=== PATIENT | male | born 1960 | race Caucasian/White ===

== ENCOUNTER 2019-11-19 07:55 | Inpatient (IN) | payer OTHER ==
--- NOTE | 2019-11-19 08:50 | ED ---
General Adult HPI - General Chief complaint: Fever Stated complaint: Weakness/Poss Covid Time Seen by Provider: 11/19/19 08:00 Source: patient, RN notes reviewed, old records reviewed Mode of arrival: EMS - History of Present Illness Initial comments: This is a 59-year-old male who presents to the emergency department and is a very poor historian but he is alert and oriented 3. Patient states he was in the hospital at [facility] about 2 months ago he thinks he was in the hospital for 6 weeks but he is not exactly sure why he was in the hospital or what symptoms brought him to the hospital or what his final diagnosis was other then he was diagnosed with non-Hodgkin's lymphoma. Patient states nobody will tell him the truth his brothers or girlfriend for some reason or keeping the information from him so he will not tell me why. Patient states he's here today because he started having some achiness just a low-grade fever and he decided come to the emergency department to be evaluated. Patient states he is supposed to be treated locally for his non-Hodgkin's lymphoma and has an appointment tomorrow. Patient states he's had no shortness of breath or difficulty breathing easily no conjunctival symptoms. Patient denies any chest pain or palpitations. Patient denies abdominal pain patient denies any nausea vomiting diarrhea per patient denies any rashes. Patient again does not remember virtually anything from his 6 week hospital stay at home on [place]. - Related Data Home Medications Medication Instructions Recorded Confirmed Allopurinol [Zyloprim] 300 mg PO DAILY 11/19/19 11/19/19 Citalopram Hydrobromide [CeleXA] 20 mg PO DAILY 11/19/19 11/19/19 Dexamethasone 4 mg PO DAILY 11/19/19 11/19/19 Docusate Sodium [Dok] 100 mg PO BID 11/19/19 11/19/19 Lacosamide [Vimpat] 100 mg PO BID 11/19/19 11/19/19 QUEtiapine [SEROquel] 50 mg PO HS 11/19/19 11/19/19 Allergies Allergy/AdvReac Type Severity Reaction Status Date / Time No Known Allergies Allergy Verified 11/19/19 12:33 Review of Systems ROS Statement: Those systems with pertinent positive or pertinent negative responses have been documented in the HPI. ROS Other: All systems not noted in ROS Statement are negative. Past Medical History Past Medical History: Cancer, Diabetes Mellitus Additional Past Medical History / Comment(s): BRAIN CANCER History of Any Multi-Drug Resistant Organisms: None Reported Additional Past Surgical History / Comment(s): PORT Past Psychological History: No Psychological Hx Reported Smoking Status: Former smoker Past Alcohol Use History: Occasional Past Drug Use History: None Reported General Exam - General Exam Comments Initial Comments: GENERAL: Patient is well-developed and well-nourished. Patient is nontoxic and well- hydrated and is in no apparent distress. ENT: Neck is soft and supple. No significant lymphadenopathy is noted. Oropharynx is clear. Moist mucous membranes. Neck has full range of motion without eliciting any pain. EYES: The sclera were anicteric and conjunctiva were pink and moist. Extraocular movements were intact and pupils were equal round and reactive to light. Eyelids were unremarkable. PULMONARY: Patient had some minimal crackles in the left base CARDIOVASCULAR: There is a regular rate and rhythm without any murmurs gallops or rubs. ABDOMEN: Soft and nontender with normal bowel sounds. SKIN: Skin is clear with no lesions or rashes and otherwise unremarkable. NEUROLOGIC: Patient is alert and oriented x3. Cranial nerves II through XII are grossly intact. Motor and sensory are also intact. Normal speech, volume and content. Symmetrical smile. MUSCULOSKELETAL: Normal extremities with adequate strength and full range of motion. LYMPHATICS: No significant lymphadenopathy is noted PSYCHIATRIC: Normal psychiatric evaluation. Limitations: no limitations Course Vital Signs 11/19/19 11/19/19 11/19/19 07:57 08:40 10:08 Temperature 100.2 F H 99.2 F Pulse Rate 74 72 65 Respiratory 18 18 18 Rate Blood Pressure 141/80 151/80 120/63 O2 Sat by Pulse 97 98 97 Oximetry 11/19/19 11/19/19 11:00 13:00 Temperature Pulse Rate 70 80 Respiratory 18 16 Rate Blood Pressure 123/61 133/71 O2 Sat by Pulse 95 96 Oximetry Medical Decision Making - Medical Decision Making EKG shows normal sinus rhythm at 74 bpm OK interval 162 QRS is 90 QT interval 38 QTC is 4:30. Patient's EKG shows no ST segment elevation or depression. Patient was given magnesium emergency department. Patient was also given fluids. I spoke with Dr. Gonzalez agrees to admit the patient I wrote admitting orders. - Lab Data Result diagrams: 11/19/19 08:25 11/19/19 08:25 Lab Results 11/19/19 11/19/19 11/19/19 Range/Units 08:18 08:25 08:25 WBC 6.5 (3.8-10.6) k/uL RBC 4.20 L (4.30-5.90) m/uL Hgb 13.3 (13.0-17.5) gm/dL Hct 39.7 (39.0-53.0) % MCV 94.4 (80.0-100.0) fL MCH 31.6 (25.0-35.0) pg MCHC 33.5 (31.0-37.0) g/dL RDW 13.5 (11.5-15.5) % Plt Count 344 (150-450) k/uL Neutrophils % (Manual) 42 % Band Neutrophils % 3 % Lymphocytes % (Manual) 37 % Monocytes % (Manual) 12 % Eosinophils % (Manual) 1 % Metamyelocytes % 4 % Myelocytes % 3 % Neutrophils # (Manual) 2.90 (1.3-7.7) k/uL Lymphocytes # (Manual) 2.41 (1.0-4.8) k/uL Monocytes # (Manual) 0.78 (0-1.0) k/uL Eosinophils # (Manual) 0.07 (0-0.7) k/uL Metamyelocytes # (Man) 0.26 H (0) k/uL Myelocytes # (Manual) 0.20 H (0) k/uL Nucleated RBCs 1 H (0-0) /100 WBC Manual Slide Review Performed PT 9.3 (9.0-12.0) sec INR 0.9 (<1.2) APTT 20.9 L (22.0-30.0) sec D-Dimer 1.46 H (<0.60) mg/L FEU Sodium (137-145) mmol/L Potassium (3.5-5.1) mmol/L Chloride (98-107) mmol/L Carbon Dioxide (22-30) mmol/L Anion Gap mmol/L BUN (9-20) mg/dL Creatinine (0.66-1.25) mg/dL Est GFR (CKD-EPI)AfAm (>60 ml/min/1.73 sqM) Est GFR (CKD-EPI)NonAf (>60 ml/min/1.73 sqM) Glucose (74-99) mg/dL Lactic Ac Sepsis Rflx Plasma Lactic Acid Luis Daniel (0.7-2.0) mmol/L Calcium (8.4-10.2) mg/dL Magnesium (1.6-2.3) mg/dL Total Bilirubin (0.2-1.3) mg/dL AST (17-59) U/L ALT (4-49) U/L Alkaline Phosphatase (38-126) U/L Lactate Dehydrogenase (313-618) U/L C-Reactive Protein (<10.0) mg/L Total Protein (6.3-8.2) g/dL Albumin (3.5-5.0) g/dL Coronavirus (PCR) Not Detected (Not Detectd) Hepatitis A IgM Ab Influenza Type A RNA Not Detected (Not Detectd) Influenza Type B (PCR) Not Detected (Not Detectd) 11/19/19 11/19/19 11/19/19 Range/Units 08:25 08:25 09:07 WBC (3.8-10.6) k/uL RBC (4.30-5.90) m/uL Hgb (13.0-17.5) gm/dL Hct (39.0-53.0) % MCV (80.0-100.0) fL MCH (25.0-35.0) pg MCHC (31.0-37.0) g/dL RDW (11.5-15.5) % Plt Count (150-450) k/uL Neutrophils % (Manual) % Band Neutrophils % % Lymphocytes % (Manual) % Monocytes % (Manual) % Eosinophils % (Manual) % Metamyelocytes % % Myelocytes % % Neutrophils # (Manual) (1.3-7.7) k/uL Lymphocytes # (Manual) (1.0-4.8) k/uL Monocytes # (Manual) (0-1.0) k/uL Eosinophils # (Manual) (0-0.7) k/uL Metamyelocytes # (Man) (0) k/uL Myelocytes # (Manual) (0) k/uL Nucleated RBCs (0-0) /100 WBC Manual Slide Review PT (9.0-12.0) sec INR (<1.2) APTT (22.0-30.0) sec D-Dimer (<0.60) mg/L FEU Sodium 129 L (137-145) mmol/L Potassium 4.0 (3.5-5.1) mmol/L Chloride 97 L (98-107) mmol/L Carbon Dioxide 25 (22-30) mmol/L Anion Gap 7 mmol/L BUN 13 (9-20) mg/dL Creatinine 0.79 (0.66-1.25) mg/dL Est GFR (CKD-EPI)AfAm >90 (>60 ml/min/1.73 sqM) Est GFR (CKD-EPI)NonAf >90 (>60 ml/min/1.73 sqM) Glucose 315 H (74-99) mg/dL Lactic Ac Sepsis Rflx Y Plasma Lactic Acid Luis Daniel 3.1 H* (0.7-2.0) mmol/L Calcium 9.5 (8.4-10.2) mg/dL Magnesium 1.5 L (1.6-2.3) mg/dL Total Bilirubin 0.3 (0.2-1.3) mg/dL AST 505 H (17-59) U/L ALT 1056 H (4-49) U/L Alkaline Phosphatase 417 H (38-126) U/L Lactate Dehydrogenase 1554 H (313-618) U/L C-Reactive Protein 28.2 H (<10.0) mg/L Total Protein 6.2 L (6.3-8.2) g/dL Albumin 3.4 L (3.5-5.0) g/dL Coronavirus (PCR) (Not Detectd) Hepatitis A IgM Ab Influenza Type A RNA (Not Detectd) Influenza Type B (PCR) (Not Detectd) 11/19/19 11/19/19 Range/Units 12:12 13:07 WBC (3.8-10.6) k/uL RBC (4.30-5.90) m/uL Hgb (13.0-17.5) gm/dL Hct (39.0-53.0) % MCV (80.0-100.0) fL MCH (25.0-35.0) pg MCHC (31.0-37.0) g/dL RDW (11.5-15.5) % Plt Count (150-450) k/uL Neutrophils % (Manual) % Band Neutrophils % % Lymphocytes % (Manual) % Monocytes % (Manual) % Eosinophils % (Manual) % Metamyelocytes % % Myelocytes % % Neutrophils # (Manual) (1.3-7.7) k/uL Lymphocytes # (Manual) (1.0-4.8) k/uL Monocytes # (Manual) (0-1.0) k/uL Eosinophils # (Manual) (0-0.7) k/uL Metamyelocytes # (Man) (0) k/uL Myelocytes # (Manual) (0) k/uL Nucleated RBCs (0-0) /100 WBC Manual Slide Review PT (9.0-12.0) sec INR (<1.2) APTT (22.0-30.0) sec D-Dimer (<0.60) mg/L FEU Sodium (137-145) mmol/L Potassium (3.5-5.1) mmol/L Chloride (98-107) mmol/L Carbon Dioxide (22-30) mmol/L Anion Gap mmol/L BUN (9-20) mg/dL Creatinine (0.66-1.25) mg/dL Est GFR (CKD-EPI)AfAm (>60 ml/min/1.73 sqM) Est GFR (CKD-EPI)NonAf (>60 ml/min/1.73 sqM) Glucose (74-99) mg/dL Lactic Ac Sepsis Rflx Plasma Lactic Acid Luis Daniel 2.4 H* (0.7-2.0) mmol/L Calcium (8.4-10.2) mg/dL Magnesium (1.6-2.3) mg/dL Total Bilirubin (0.2-1.3) mg/dL AST (17-59) U/L ALT (4-49) U/L Alkaline Phosphatase (38-126) U/L Lactate Dehydrogenase (313-618) U/L C-Reactive Protein (<10.0) mg/L Total Protein (6.3-8.2) g/dL Albumin (3.5-5.0) g/dL Coronavirus (PCR) (Not Detectd) Hepatitis A IgM Ab NEGATIVE Influenza Type A RNA (Not Detectd) Influenza Type B (PCR) (Not Detectd) Disposition Clinical Impression: Fever of unknown origin, Hyponatremia, Hypomagnesemia, Lactic acidosis, Elevated liver enzymes Disposition: ADMITTED IP TO THIS HOSP Referrals: Nonstaff,Physician [Primary Care Provider] - 1-2 days Time of Disposition: 14:37
[2019-11-19 08:54] LABS: HCT 39.7 % (39.0-53.0); HGB 13.3 gm/dL (13.0-17.5); MCH 31.6 pg (25.0-35.0); MCHC 33.5 g/dL (31.0-37.0); MCV 94.4 fL (80.0-100.0); Mean Platelet Volume 7.5; Platelet Count 344 k/uL (150-450); RDW 13.5 % (11.5-15.5)
[2019-11-19 09:01] LABS: AST 505 U/L (17-59); African American GFR (CKD) >90 (>60 ml/min/1.73 sqM); Albumin 3.4 g/dL (3.5-5.0); Alkaline Phosphatase 417 U/L (38-126); Anion Gap 7 mmol/L; Blood Urea Nitrogen 13 mg/dL (9-20); C Reactive Protein 28.2 mg/L (<10.0); Calcium 9.5 mg/dL (8.4-10.2); Carbon Dioxide 25 mmol/L (22-30); Chloride 97 mmol/L (98-107); Glucose 315 mg/dL (74-99); LDH 1554 U/L (313-618); Magnesium 1.5 mg/dL (1.6-2.3); Non-African American GFR(CKD) >90 (>60 ml/min/1.73 sqM); Sodium 129 mmol/L (137-145); Total Bilirubin 0.3 mg/dL (0.2-1.3); Total Protein 6.2 g/dL (6.3-8.2)
--- NOTE | 2019-11-19 09:04 | XR ---
EXAMINATION TYPE: XR chest 1V portable DATE OF EXAM: 11/19/2019 HISTORY: Suspected COVID-19 pneumonia. REFERENCE: NONE. FINDINGS: There is a Port-A-Cath in place on the right. Its tip is in the superior vena cava. Lungs clear. Pleural space are clear. Heart size upper limits of normal. IMPRESSION: NO ACUTE INTRATHORACIC DISEASE.
[2019-11-19 09:07] LABS: ALT 1056 U/L (4-49); INR 0.9 (<1.2); Prothrombin Time 9.3 sec (9.0-12.0)
[2019-11-19 09:09] LABS: D-Dimer 1.46 mg/L FEU (<0.60); Partial Thromboplastin Time 20.9 sec (22.0-30.0)
[2019-11-19 09:15] LABS: Band Neutrophils % 3 %; Eosinophils # (M) 0.07 k/uL (0-0.7); Lymphocytes # (M) 2.41 k/uL (1.0-4.8); Metamyelocytes # (M) 0.26 k/uL (0); Metamyelocytes % 4 %; Monocytes # (M) 0.78 k/uL (0-1.0); Myelocytes % 3 %; Neutrophils % (M) 42 %; Nucleated Red Blood Cells 1 /100 WBC (0-0); Total Cells Counted 200; WBC 6.5 k/uL (3.8-10.6)
[2019-11-19] MEDS ORDERED: MAGNESIUM SULFATE-D5W PMX 1 GM in DEXTROSE/WATER 1 100ML.BAG IVPB ONE (10:16)
--- NOTE | 2019-11-19 11:00 | CT ---
EXAMINATION TYPE: CT chest angio for PE DATE OF EXAM: 11/19/2019 COMPARISON: None. HISTORY: SOB, possible PE CT DLP: 454.9 mGycm Automated exposure control for dose reduction was used. CONTRAST: CT Chest for pulmonary embolism performed with with IV Contrast, patient injected with 100 mL of Isov ue 300. FINDINGS: There is some minimal relaxation atelectasis in the dependent portions of the lungs. There is some scarring or atelectasis in the left lingula. Lungs otherwise clear. There is no significant axillary, mediastinal or hilar adenopathy. There is no evidence of pulmonary embolus. The aorta is normal in caliber without evidence of dissection. There is no pleural or pericardial flu id. Visualized portions of the upper abdomen are unremarkable. There is hypertrophic spondylosis and spondylosis deformans within the dorsal spine. IMPRESSION: 1. THIS EXAMINATION IS NEGATIVE FOR PULMONARY EMBOLUS. 2. DEGENERATIVE CHANGE WITHIN THE SPINE.
[2019-11-19 12:58] LABS: Hepatitis A Antibody IgM NEGATIVE
[2019-11-19] MEDS ORDERED: SODIUM CHLORIDE 0.9% 1,000 ML IV ONE (14:34)
--- NOTE | 2019-11-19 16:06 | P.PN ---
Progress Note - Text Progress Note Date: 11/19/19 Spoke to patient's , Lorie. She was able to clarify history and recent events better. Jeramy has a primary [employer] lymphoma and was recently at [facility] where he received his first cycle of what is believed to be High Dose Methotrexate. His baseline recently is poor historian, labile emotions and intermittent confusion. He originally presented with quick onset inability to speak or walk, this is when the brain tumor was found. This was Early October per his . She denies any history of liver disease. No excessive history of alcohol, social per . Has not smoked since diagnosed. He was suppose to transfer care to Dr. Betts as he is due for next round of chemotherapy on November 21. Increased LFTs Hyponatremia, Hypomagnesia Increased Temp: Tumor versus infectious Day CUlture Abdominal imaging focus liver Methotrexate level stat Uric acid and Phos levels Monitor for tumor lysis and work-up of increased liver function. Full consult to follow Radha Rodriguez NP
[2019-11-19] MEDS ORDERED: ALPRAZolam 0.25 MG TAB PO PRN (17:44)
[2019-11-19] MEDS ORDERED: HYDROmorphone 0.5 MG/0.5 ML SYRINGE IVP PRN (17:44)
--- NOTE | 2019-11-19 18:53 | P.CONS ---
History of Present Illness - Reason for Consult Consult date: 11/19/19 NHL Requesting physician: Michael Jay - Chief Complaint Labile, Weakness, Fever - History of Present Illness Mr. Church is a pleasant male who was recently admitted to [facility] with mental status changes, weakness, and inability to speak. 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 I did attempt to speak with Jeramy today although pleasant he is a poor historian and unable to tell me what was going on, why he was in hospital, and what events had occurred over the past few months. THerefore I spoke in depth with his Sharan. On admission low grade fevers, current canales cultures are negative. He apparently was treated with HIgh Dose Methotrexate, and is due for cycle number two on 11/22/19. He was suppose to meet Dr. Betts as outpatient this week to resume care closer to home. On admission his Liver function is increased. CTA negative for PE. Review of Systems A 14 point review of systems assessed and completed and all negative except HPI - Patient poor historian most of this information was gathered from Past Medical History Past Medical History: Cancer, Diabetes Mellitus Additional Past Medical History / Comment(s): BRAIN CANCER History of Any Multi-Drug Resistant Organisms: None Reported Additional Past Surgical History / Comment(s): PORT Past Psychological History: No Psychological Hx Reported Smoking Status: Former smoker Past Alcohol Use History: Occasional Past Drug Use History: None Reported - Past Family History Father Additional Family Medical History / Comment(s): unknown Mother Additional Family Medical History / Comment(s): unknown Medications and Allergies Home Medications Medication Instructions Recorded Confirmed Type Allopurinol [Zyloprim] 300 mg PO DAILY 11/19/19 11/19/19 History Citalopram Hydrobromide [CeleXA] 20 mg PO DAILY 11/19/19 11/19/19 History Dexamethasone 4 mg PO DAILY 11/19/19 11/19/19 History Docusate Sodium [Dok] 100 mg PO BID 11/19/19 11/19/19 History Lacosamide [Vimpat] 100 mg PO BID 11/19/19 11/19/19 History QUEtiapine [SEROquel] 50 mg PO HS 04/12/20 04/12/20 History Allergies Allergy/AdvReac Type Severity Reaction Status Date / Time No Known Allergies Allergy Verified 11/19/19 12:33 Physical Exam Vitals: Vital Signs Temp Pulse Resp BP Pulse Ox 11/19/19 14:48 98.8 F 71 16 134/74 96 11/19/19 13:00 80 16 133/71 96 11/19/19 11:00 70 18 123/61 95 11/19/19 10:08 99.2 F 65 18 120/63 97 11/19/19 08:40 72 18 151/80 98 11/19/19 07:57 100.2 F H 74 18 141/80 97 Intake and Output 11/19/19 11/19/19 11/19/19 06:59 14:59 22:59 Other: Weight 99.79 kg Telemed visit, patient seen on RN facetime although pleasant unable to provide info Results CBC & Chem 7: 11/19/19 08:25 11/19/19 08:25 Labs: Abnormal Lab Results - Last 24 Hours (Table) 11/19/19 11/19/19 11/19/19 Range/Units 08:25 08:25 08:25 RBC 4.20 L (4.30-5.90) m/uL Metamyelocytes # (Man) 0.26 H (0) k/uL Myelocytes # (Manual) 0.20 H (0) k/uL Nucleated RBCs 1 H (0-0) /100 WBC APTT 20.9 L (22.0-30.0) sec D-Dimer 1.46 H (<0.60) mg/L FEU Sodium 129 L (137-145) mmol/L Chloride 97 L (98-107) mmol/L Glucose 315 H (74-99) mg/dL Plasma Lactic Acid Luis Daniel (0.7-2.0) mmol/L Magnesium 1.5 L (1.6-2.3) mg/dL AST 505 H (17-59) U/L ALT 1056 H (4-49) U/L Alkaline Phosphatase 417 H (38-126) U/L Lactate Dehydrogenase 1554 H (313-618) U/L C-Reactive Protein 28.2 H (<10.0) mg/L Total Protein 6.2 L (6.3-8.2) g/dL Albumin 3.4 L (3.5-5.0) g/dL 11/19/19 11/19/19 Range/Units 08:25 13:07 RBC (4.30-5.90) m/uL Metamyelocytes # (Man) (0) k/uL Myelocytes # (Manual) (0) k/uL Nucleated RBCs (0-0) /100 WBC APTT (22.0-30.0) sec D-Dimer (<0.60) mg/L FEU Sodium (137-145) mmol/L Chloride (98-107) mmol/L Glucose (74-99) mg/dL Plasma Lactic Acid Luis Daniel 3.1 H* 2.4 H* (0.7-2.0) mmol/L Magnesium (1.6-2.3) mg/dL AST (17-59) U/L ALT (4-49) U/L Alkaline Phosphatase (38-126) U/L Lactate Dehydrogenase (313-618) U/L C-Reactive Protein (<10.0) mg/L Total Protein (6.3-8.2) g/dL Albumin (3.5-5.0) g/dL Chest x-ray: report reviewed CT scan - chest: report reviewed Assessment and Plan Plan: Assessment and Recommendations: Recent Diagnosis of ACAD[employer]IC AFFAIRS MANAGER Lymphoma: - Status POst one cycle of chemotherapy at [facility] and apparently due on 11/22/19. Was to have follow-up with Dr. Betts this week to resume care closer to home. Information provided from noemi Melo, possible treatment was High DOse Methotrexate (?) will request records - Check Methotrexate level Fevers: - Work-up in progress - Low grade in Emergency, possible related to tumor and chemo, must rule out infectious nature first Elevated LFTs: - Medication versus other - Imaging of liver ordered Telemed visit today, most of time spent collecting information from sharan. Visit was given with permission from patient, history, medications, pertinent labs and orderes reviewed and placed. Time with Patient: Greater than 30
[2019-11-19] MEDS: DEXAMETHASONE 4 MG TAB PO SCH (19:52)
[2019-11-19 20:40] LABS: Glucose,Whole Blood 301 mg/dL (75-99)
[2019-11-19] MEDS: INSULIN ASPART (NovoLOG) 100 UNIT/ML VIAL SQ SCH (20:59)
--- NOTE | 2019-11-19 21:25 | HP ---
HISTORY AND PHYSICAL DATE OF SERVICE: 11/19/2019. CHIEF COMPLAINT: Fever. HISTORY OF PRESENT ILLNESS: This 59-year-old gentleman who was recently diagnosed with non-Hodgkin lymphoma on the right side of the brain at [facility] after biopsy, also had significant difficulty with the left arm. 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 The patient was running a mild fever and the patient was taken to [facility] and was admitted for further evaluation and treatment. Prior to the initial episode of lymphoma, [place] appeared in [place], not able to remember. Patient apparently does not remember what happened for the last couple months. The fever was low-grade and the patient was recently discharged from [facility] and occasional cough is reported. Otherwise, no shortness of breath, no chest pain or palpitations. Patient came to [facility] and was admitted for further evaluation and treatment. The evaluation in the ER showed multiple abnormalities including normal CBC, but however, D- dimer was elevated 1.4. Sodium 129. Lactic acid also elevated and AST/ALT was significantly elevated at 506 and 1056 indicating hepatitis inflammatory process. C- reactive protein also increased. Schroeder virus testing was negative. Hepatitis panel is also negative. The chest CTA was also done because of the elevated D-dimer, which showed no evidence of any pulmonary embolism, DJD of the spine was noted. A detailed history could not be taken from the patient because of memory gaps. Most of the history is taken from my discussion with staff who discussed with the at length. PAST MEDICAL HISTORY: Past medical history of recently diagnosed [employer]OUNT [employer] SUPER[employer]OR lymphoma and brain biopsy, history of diabetes type 2, GERD, hypertension, history of MediPort. MEDICATIONS: Prior to admission: 1. Vimpat 100 mg p.o. b.i.d. 2. Docusate sodium 100 mg p.o. b.i.d. 3. Seroquel 50 mg q.h.s. 4. Zyloprim 300 mg daily. 5. Dexamethasone 4 mg p.o. daily. 6. Celexa 20 mg daily. ALLERGIES: None. FAMILY HISTORY: Family history unknown. SOCIAL HISTORY: Previous history of smoking. No history of current smoking or alcohol intake. REVIEW OF SYSTEMS: ENT: No diminished vision. No diminished hearing. CARDIOVASCULAR no angina or palpitations. RESPIRATION : As mentioned earlier. GI no nausea or vomiting. no dysuria. NERVOUS SYSTEM: As mentioned earlier. ALLERGIES/IMMUNOLOGY: No asthma or hayfever. MUSCULOSKELETAL as mentioned earlier. HEMATOLOGY/ONCOLOGY: As mentioned earlier. ENDOCRINE: No history of diabetes or hypothyroidism. CONSTITUTIONAL: As mentioned earlier. DERMATOLOGY: Negative. RHEUMATOLOGY: Negative. PSYCHIATRIC: As mentioned earlier. PHYSICAL EXAMINATION: Alert and oriented x2. Pulse 74. Blood pressure 113/58, respiration 18, temp 98.8, pulse ox 98% on room air. HEENT is conjunctivae normal. Oral mucosa moist. NECK is no jugular venous distention. No carotid bruit. No lymph node enlargement. CARDIOVASCULAR system: S1, S2 muffled. No S3, no S4. RESPIRATORY: Breath sounds diminished in the bases. No rhonchi. No crackles. ABDOMEN: Soft, nontender. No mass palpable. LEGS no edema. No swelling. NERVOUS SYSTEM: Higher functions as mentioned earlier. Moves all four limbs. No focal motor or sensory deficits. LYMPHATICS: No lymph nodes palpable in the neck, axillae or groin. SKIN: No ulcer, rash or bleeding. JOINTS: No active deforming arthropathy. LABS: WBC 6.2, hemoglobin 13.3. D-dimer is 1.46. Sodium 129, otherwise AST is 505, ALT is 1056. ASSESSMENT: 1. Fever for evaluation, rule out sepsis. 2. Increased AST/ALT possibly acute hepatitis. 3. Elevated alkaline phosphatase and LDH. 4. Elevated plasma lactic acid. 5. Hypomagnesemia. 6. Diabetes mellitus type 2 uncontrolled, possibly new onset secondary to steroids. 7. Hyponatremia. 8. Elevated D-dimer without any evidence of pulmonary embolism. 9. 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 10.Gastroesophageal reflux disease. 11.Hyperlipidemia. 12.History of nicotine dependence. RECOMMENDATIONS AND DISCUSSION: This 59-year-old gentleman who presented with multiple complex medical issues, we will monitor the patient closely. Continue the current medications, management and symptomatic treatment. I recommend empiric antibiotics. Infectious disease evaluation. Cultures. Covid test is negative. However, we will monitor the patient closely and repeat LFTs. I would also recommend infectious disease evaluation. Monitor blood sugars closely. Serum acetone is positive. Follow the DKA protocol. Prognosis guarded because of multiple complex medical issues. Closely follow with Hematology/oncology also. MMODL / IJN: [id number] /
[2019-11-19] MEDS: FLUTICASONE 50MCG/SPRAY NASAL 16GM EA NOSTRIL PRN (21:42)
[2019-11-20 02:19] LABS: Appearance,Urine Clear (Clear); Bilirubin,Urine Negative (Negative); Blood,Urine Trace (Negative); Color,Urine Light Yellow; Glucose,Urine (UA) 4+ (Negative); Ketones,Urine Negative (Negative); Leukocyte Esterase,Urine Moderate (Negative); Nitrite,Urine Negative (Negative); Protein,Urine Negative (Negative); RBC,Urine 2 /hpf (0-5); Specific Gravity,Urine 1.006 (1.001-1.035); Urobilinogen,Urine <2.0 mg/dL (<2.0); WBC,Urine 26 /hpf (0-5)
--- NOTE | 2019-11-20 06:25 | CONS ---
CONSULTATION DATE OF SERVICE: 11/19/2019 REASON FOR CONSULTATION: Fever. HISTORY OF PRESENT ILLNESS: The patient is a 59-year-old male who has been recently diagnosed with primary OSTEOPATHY DOCTOR lymphoma diagnosed in [facility]. Patient subsequently has received high-dose methotrexate dose a second 11/22/2019. The patient is presenting to [facility] ER early this morning for evaluation of fever and some mental status changes. The patient denies having any headache or URI symptoms except some sore throat. Denies any significant chest pain, shortness of breath or cough. No nausea, no vomiting. No abdominal pain or any diarrhea. On presentation to the hospital, the patient did have a temperature of 100.2 degrees Fahrenheit. The patient has been saturating 97% to 98% on room air. The patient did have a normal white count and no lymphopenia. He did have elevated liver enzymes as well as LDH. Lactic acid was elevated as well. His was negative. The patient did have a influenza and coronavirus PCR which came back negative. The patient did have a chest x-ray which was negative for any acute cardiopulmonary disease. He also had a CT angiogram that was negative for PE and did not show any covered ground-glass opacities. Lungs were clear. The patient did have elevated liver enzymes. He was started on Rocephin. Infectious Disease was consulted for further recommendations regarding antibiotic therapy. REVIEW OF SYSTEMS: Positive points have been mentioned in HPI. Rest of the systems are negative. PAST MEDICAL HISTORY: Recent diagnosis of OSTEOPATHY DOCTOR lymphoma, diabetes mellitus. PAST SURGICAL HISTORY: Brain biopsy and Mediport placement. SOCIAL HISTORY: Remote history of smoking. Occasionally drinks. No drug use. FAMILY HISTORY: No pertinent findings noticed. ALLERGIES: No known drug allergies. MEDICATIONS: Medications include the patient is currently on Xanax, Rocephin 2 grams daily, dexamethasone, Dilaudid, NovoLog, Protonix, and IV fluid. PHYSICAL EXAMINATION: On examination, blood pressure is 113/58 with a pulse of 74, temperature 98.3. He is 98% on room air. General description is a middle-aged male lying in bed in no distress. No tachypnea or accessory muscle of respiration use. HEENT: Examination showed no pallor or scleral icterus. Oral mucous membrane is moist. NECK: Trachea central. No thyromegaly. LUNGS: Unlabored breathing, clear to auscultation anteriorly. No wheeze or crackle. HEART: S1, S2. Regular rate and rhythm. ABDOMEN: Soft, no tenderness. No guarding or rigidity. EXTREMITIES: No edema of feet. SKIN EXAMINATION: No rash or mass palpable. NEUROLOGICAL: Patient is awake, alert, oriented x2 mood and affect normal. LABS: Hemoglobin 13.3, white count 6.5. BUN of 13, creatinine 0.79. Lactic acid elevated. Liver enzymes are elevated. Influenza, coronavirus PCR was negative. CT angiogram negative for any PE or pneumonia. DIAGNOSTIC IMPRESSION AND PLAN: Patient admitted to the hospital with low-grade fever in this patient who did have some mental status changes with recent diagnosis of OSTEOPATHY DOCTOR lymphoma and has received high-dose methotrexate with dose 11/22/2019 with elevated liver with question of possible intraabdominal source for his fever or related to underlying OSTEOPATHY DOCTOR lymphoma. The patient currently does not look toxic and no other obvious clinical focus of infection. PLAN: 1. We will check a UA and culture to complete the workup. 2. Check an ultrasound of the abdomen. 3. Continue Rocephin 2 grams daily. 4. We will follow on his clinical condition and culture to further adjust medication if needed. Thank you for this consultation. Will follow this patient along with you. MMODL / IJN: [id number] /
[2019-11-20 07:28] LABS: Glucose,Whole Blood 267 mg/dL (75-99)
[2019-11-20 07:56] LABS: Basophils % (A) 0 %; Eosinophils % (A) 1 %; HCT 43.4 % (39.0-53.0); HGB 14.1 gm/dL (13.0-17.5); Lymphocytes % (A) 15 %; MCH 31.3 pg (25.0-35.0); MCHC 32.5 g/dL (31.0-37.0); MCV 96.2 fL (80.0-100.0); Mean Platelet Volume 7.6; Monocytes # (A) 0.5 k/uL (0-1.0); Monocytes % (A) 7 %; Neutrophils # (A) 5.2 k/uL (1.3-7.7); Neutrophils % (A) 76 %; Platelet Count 397 k/uL (150-450); RBC 4.51 m/uL (4.30-5.90); RDW 13.6 % (11.5-15.5); WBC 6.9 k/uL (3.8-10.6)
[2019-11-20 07:59] LABS: AST 251 U/L (17-59); African American GFR (CKD) >90 (>60 ml/min/1.73 sqM); Albumin 3.6 g/dL (3.5-5.0); Alkaline Phosphatase 308 U/L (38-126); Anion Gap 9 mmol/L; Blood Urea Nitrogen 14 mg/dL (9-20); Calcium 9.3 mg/dL (8.4-10.2); Carbon Dioxide 28 mmol/L (22-30); Chloride 94 mmol/L (98-107); Glucose 296 mg/dL (74-99); Non-African American GFR(CKD) >90 (>60 ml/min/1.73 sqM); Potassium 5.2 mmol/L (3.5-5.1); Sodium 131 mmol/L (137-145); Total Bilirubin 0.5 mg/dL (0.2-1.3); Total Protein 6.5 g/dL (6.3-8.2)
[2019-11-20] MEDS: PANTOPRAZOLE 40 MG/10 ML VIAL IVP SCH (08:11)
[2019-11-20] MEDS: DEXAMETHASONE 4 MG TAB PO SCH (08:11)
[2019-11-20] MEDS: INSULIN ASPART (NovoLOG) 100 UNIT/ML VIAL SQ SCH ×4 (08:12→21:55)
[2019-11-20] MEDS: FLUTICASONE 50MCG/SPRAY NASAL 16GM EA NOSTRIL PRN (08:14)
[2019-11-20 08:19] LABS: ALT 984 U/L (4-49)
--- NOTE | 2019-11-20 10:00 | CT ---
EXAMINATION TYPE: CT brain wo con DATE OF EXAM: 11/20/2019 COMPARISON: None HISTORY: brain tumor, fever CT DLP: [address] of the brain was performed. There is right frontal craniotomy noted. Decreased attenuation is seen within the right frontal lobe compatible with vasogenic edema. No distinct mass identified however lack of contrast limits evaluati on. No evidence for intracranial hemorrhage or extra-axial collection. No evidence for midline shift. No additional areas of abnormal attenuation seen at this time. If symptoms persist consider MRI. IMPRESSION: 1. Operative changes of right frontal craniotomy with underlying vasogenic edema. No evidence for abn ormal collection or midline shift.
[2019-11-20 10:39] LABS: Ferritin 804.1 ng/mL (22.0-322.0)
[2019-11-20 10:49] VITALS: BMI 27.1
--- NOTE | 2019-11-20 11:39 | P.PN ---
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 He becomes rather verbally aggressive during our discussion. He is denying any acute physical complaints Objective - Vital Signs Vital signs: Vital Signs Temp 98.1 F 11/20/19 05:39 Pulse 69 11/20/19 05:39 Resp 16 11/20/19 05:39 BP 119/65 11/20/19 05:39 Pulse Ox 94 L 11/20/19 05:39 Intake & Output 11/19/19 11/20/19 11/20/19 18:59 06:59 18:59 Weight 99.79 kg 90.718 kg Other: Voiding Method Toilet # Voids 2 2 - Constitutional General appearance: Present: average body habitus, no acute distress - EENT Eyes: Present: anicteric sclerae, EOMI ENT: Present: hearing grossly normal - Respiratory Details: Respirations even and unlabored - Peripheral edema leg Peripheral Edema: bilateral: None - Integumentary Integumentary: Present: normal - Neurologic Neurologic Comment(s): Patient visualized moving all 4 extremities, he can adjust his own body weight, no gross focal or motor or neuro deficits noted Neurologic: Present: CNII-XII intact - Musculoskeletal Musculoskeletal: Present: strength equal bilaterally - Psychiatric Psychiatric: Present: A&O x's 3 - Labs CBC & Chem 7: 11/20/19 06:04 11/20/19 06:04 Labs: Abnormal Lab Results - Last 24 Hours (Table) 11/19/19 11/19/19 11/19/19 Range/Units 08:25 13:07 16:42 Sodium (137-145) mmol/L Potassium (3.5-5.1) mmol/L Chloride (98-107) mmol/L Glucose (74-99) mg/dL POC Glucose (mg/dL) (75-99) mg/dL Plasma Lactic Acid Luis Daniel 2.4 H* (0.7-2.0) mmol/L Uric Acid 2.3 L (3.5-8.5) mg/dL Ferritin 804.1 H (22.0-322.0) ng/mL AST (17-59) U/L ALT (4-49) U/L Alkaline Phosphatase (38-126) U/L Urine Glucose (UA) (Negative) Urine Blood (Negative) Ur Leukocyte Esterase (Negative) Urine WBC (0-5) /hpf Urine WBC Clumps (None) /hpf 11/19/19 11/20/19 11/20/19 Range/Units 20:39 02:00 06:04 Sodium 131 L (137-145) mmol/L Potassium 5.2 H (3.5-5.1) mmol/L Chloride 94 L (98-107) mmol/L Glucose 296 H (74-99) mg/dL POC Glucose (mg/dL) 301 H (75-99) mg/dL Plasma Lactic Acid Luis Daniel (0.7-2.0) mmol/L Uric Acid (3.5-8.5) mg/dL Ferritin (22.0-322.0) ng/mL AST 251 H (17-59) U/L ALT 984 H (4-49) U/L Alkaline Phosphatase 308 H (38-126) U/L Urine Glucose (UA) 4+ H (Negative) Urine Blood Trace H (Negative) Ur Leukocyte Esterase Moderate H (Negative) Urine WBC 26 H (0-5) /hpf Urine WBC Clumps Rare H (None) /hpf 11/20/19 Range/Units 07:24 Sodium (137-145) mmol/L Potassium (3.5-5.1) mmol/L Chloride (98-107) mmol/L Glucose (74-99) mg/dL POC Glucose (mg/dL) 267 H (75-99) mg/dL Plasma Lactic Acid Luis Daniel (0.7-2.0) mmol/L Uric Acid (3.5-8.5) mg/dL Ferritin (22.0-322.0) ng/mL AST (17-59) U/L ALT (4-49) U/L Alkaline Phosphatase (38-126) U/L Urine Glucose (UA) (Negative) Urine Blood (Negative) Ur Leukocyte Esterase (Negative) Urine WBC (0-5) /hpf Urine WBC Clumps (None) /hpf Microbiology - Last 24 Hours (Table) 11/19/19 08:25 Blood Culture - Preliminary Blood No Growth after 24 hours 11/20/19 02:00 Urine Culture - Preliminary Urine,Voided - Imaging and Cardiology CT Scan - head: report reviewed (Right frontal craniotomy noted) Assessment and Plan (1) Fever of unknown origin Narrative/Plan: Coronavirus negative. Influenza negative. Suspicious looking urine, pending culture. Blood cultures negative at 24 hours. Empiric antibiotics Current Visit: Yes Status: Acute Priority: High Code(s): R50.9 - FEVER, UNSPECIFIED SNOMED Code(s): 8571821 (2) Elevated liver enzymes Narrative/Plan: Slightly better today. Pending Gastroenterology consult. Will see if I can get any lab results from [place] to see what his baseline is. 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 CT of the head is showing craniotomy. Patient recalls getting a treatment last month. Will update the chart with information as I receive it. I would believe patient would be due for a cycle very soon, if not late for cycle. This will be followed up on. Current Visit: Yes Status: Acute Priority: High Code(s): C85.89 - OTH TYPES OF NON-HODG LYMPH, EXTRNOD AND SOLID ORGAN SITES SNOMED Code(s): 198587156 (4) Hyponatremia Narrative/Plan: Multifactorial, suspect possibly SIADH post frontal crainotomy Current Visit: Yes Status: Acute Priority: High Code(s): E87.1 - HYPO- OSMOLALITY AND HYPONATREMIA SNOMED Code(s): 29947507
--- NOTE | 2019-11-20 11:55 | ECHOF ---
Referral Reason:hx HTN MEASUREMENTS -------- HEIGHT: 182.9 cm WEIGHT: 99.8 kg BP: 119/65 IVSd: 1.2 cm (0.6 - 1.1) LVIDd: 4.0 cm (3.9 - 5.3) LVPWd: 1.5 cm (0.6 - 1.1) IVSs: 1.5 cm LVIDs: 2.2 cm LVPWs: 2.2 cm LAESV Index (A-L): 25.83 ml/m Ao Diam: 3.1 cm (2.0 - 3.7) AV Cusp: 1.8 cm (1.5 - 2.6) MV EXCURSION: 27.007 mm (> 18.000) MV EF SLOPE: 82 mm/s (70 - 150) EPSS: 0.4 cm MV E Herb: 0.68 m/s MV DecT: 260 ms MV A Herb: 0.76 m/s MV E/A Ratio: 0.90 RAP: 5.00 mmHg RVSP: 22.12 mmHg FINDINGS -------- Sinus rhythm. This was a technically adequate study. The left ventricular size is normal. There is mild concentric left ventricular hypertrophy. Overa ll left ventricular systolic function is normal with, an EF between 55 - 60 %. The diastolic fillin g pattern is normal for the age of the patient 11.26. The right ventricle is normal in size. Normal LA size by volume 22+/-6 ml/m2. The right atrium was not well visualized. Interatrial and interventricular septum intact. The aortic valve is trileaflet, and appears structurally normal. No aortic stenosis or regurgitation. The mitral valve is normal. There is trace mitral regurgitation. Mild tricuspid regurgitation present. There is no evidence of pulmonary hypertension. The right v entricular systolic pressure, as measured by Doppler, is 22.12mmHg. There is no pulmonic regurgitation present. The aortic root size is normal. Normal inferior vena cava with normal inspiratory collapse consistent with estimated right atrial pre ssure of 5 mmHg. There is no pericardial effusion. CONCLUSIONS -------- 1. There is mild concentric left ventricular hypertrophy. 2. Overall left ventricular systolic function is normal with, an EF between 55 - 60 %. 3. The diastolic filling pattern is normal for the age of the patient 11.26 4. Normal LA size by volume 22+/-6 ml/m2. 5. The aortic valve is trileaflet, and appears structurally normal. No aortic stenosis or regurgitati on. 6. There is trace mitral regurgitation. 7. Mild tricuspid regurgitation present. 8. There is no evidence of pulmonary hypertension. IMPROVEMENT INTERN: Amada Rubalcava RDCS
[2019-11-20 12:30] LABS: Glucose,Whole Blood 185 mg/dL (75-99)
[2019-11-20 13:20] LABS: Amylase 49 U/L (30-110)
[2019-11-20 14:32] LABS: Hepatitis B Core IgM Non-Reactive (Non-Reactive); Hepatitis B Surface Antigen Non-Reactive (Non-Reactive); Hepatitis C IgG Antibody Non-Reactive (Non-Reactive)
[2019-11-20] MEDS ORDERED: Potassium Replacement Protocol 1 EACH MISC MISCELLANE PRN (15:58)
[2019-11-20] MEDS ORDERED: Magnesium Replacement Protocol 1 EACH MISC MISCELLANE PRN (15:58)
[2019-11-20] MEDS: IOPAMIDOL CONTRAST (ORAL USE) VIAL PO PRN ×2 (16:27→17:25)
[2019-11-20 16:51] LABS: Glucose,Whole Blood 298 mg/dL (75-99)
--- NOTE | 2019-11-20 18:27 | CT ---
EXAMINATION TYPE: CT abdomen pelvis wo con DATE OF EXAM: 11/20/2019 COMPARISON: None HISTORY: Elevated LFTs. CT DLP: 696.1 mGycm Automated exposure control for dose reduction was used. TECHNIQUE: Helical acquisition of images was performed from the lung bases through the pelvis. FINDINGS: LUNG BASES: Subsegmental changes at the lung bases most typical atelectasis. LIVER/GB: Liver measures 22 cm and is enlarged. No focal mass. PANCREAS: No significant abnormality is seen. SPLEEN: No significant abnormality is seen. ADRENALS: No significant abnormality is seen. KIDNEYS: Punctate hyperdensity within the right kidney axial image 32 may represent a tiny nonobstruc ting renal stone. Lobulation the renal cortex bilaterally. ADENOPATHY: None visualized. OSSEOUS STRUCTURES: Hypertrophic and degenerative change of the spine. BOWEL: No significant abnormality is seen. OTHER: Aorta of normal caliber with atherosclerotic changes. IMPRESSION: 1. Hepatomegaly. 2. Suspected 1 mm nonobstructing renal stone with changes of chronic cortical renal lobulation.
--- NOTE | 2019-11-20 19:49 | PN ---
PROGRESS NOTE DATE OF SERVICE: 11/20/2019 This 59-year-old gentleman who was admitted with a fever was suspected to have sepsis. The patient also had elevated AST, ALT. The COVID is negative. Patient is being closely monitored at this time. A CT scan of the brain was also done which showed operative changes of right frontal craniotomy and some vasogenic edema. No evidence of abnormal collection was noted. Past medical history reviewed. REVIEW OF SYSTEMS: CARDIOVASCULAR SYSTEM: No angina, palpitations. RESPIRATORY SYSTEM: As mentioned earlier. GI: As mentioned earlier. : No dysuria or retention. NERVOUS SYSTEM: No numbness, weakness. CURRENT MEDICATIONS: Reviewed. They include: 1. Xanax 0.25 t.i.d. 2. Rocephin 1 gram daily. 3. Hexadrol. 4. Flonase. 5. Dilaudid. 6. Protonix. PHYSICAL EXAMINATION: Patient is alert and oriented x2. Pulse 66, blood pressure 119/60, respirations 16, temperature 97.8, pulse ox 94% on room air. HEENT: Conjunctivae normal. NECK: No jugular venous distention. CARDIOVASCULAR SYSTEM: S1, S2 muffled. RESPIRATORY SYSTEM: Breath sounds diminished at the bases. A few scattered rhonchi. ABDOMEN: Soft, non-tender. LEGS: No edema. No swelling. NERVOUS SYSTEM: No focal deficit. LABS: Sodium 139, potassium 5.2. AST is 251, ALT is 984. Alkaline phosphatase is 308. ASSESSMENT: 1. Fever for evaluation; rule out sepsis; rule out cholangitis. 2. Increased AST, ALT and alkaline phosphatase; possibly hepatitis; rule out extrahepatic biliary obstruction. 3. Elevated alkaline phosphatase, LDH. 4. Elevated plasma lactic acid. 5. Hypomagnesemia. 6. Diabetes mellitus, type 2, uncontrolled, with possible new onset secondary to steroids. 7. Hyponatremia. 8. Elevated D-dimer without any evidence of pulmonary embolism. 9. 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 10.Gastroesophageal reflux disease. 11.Hyperlipidemia. 12.History of nicotine dependence. 13.COVID negative. RECOMMENDATIONS AND DISCUSSION: I recommend to continue current medications, continue with the monitoring, symptomatic treatment. Continue with the broad-spectrum IV antibiotics. I would also recommend an ultrasound of the abdomen looking for any evidence of cholelithiasis. Prognosis guarded because of multiple complex medical issues. Further recommendations to follow. I would also recommend a CT scan of the abdomen as well to complete the workup. Prognosis guarded. Further recommendations to follow. Follow closely with multiple consultants. LISA / AYLA: [id number] /
[2019-11-20 20:26] LABS: Glucose,Whole Blood 217 mg/dL (75-99)
--- NOTE | 2019-11-20 21:25 | CONS ---
CONSULTATION DATE OF SERVICE: 11/20/2019 REQUESTING PHYSICIAN: Dr. Gonzalez. REASON FOR CONSULTATION: Elevated LFTs. 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 He underwent craniotomy with biopsy and is undergoing treatment currently. The patient states that he was just discharged home from [facility] last Wednesday, but is not very clear about all these details. He was admitted to the hospital because of low-grade fever, some altered mental status. As per the records from Oncology, the patient received high- dose steroids and high-dose methotrexate a few weeks ago and is scheduled to repeat the cycle in 2 days. Currently, oncology is following the patient closely. While in the hospital, the patient was noted to have elevated LFTs and hence we are consulted in regards to this issue. The patient does not recall having any history of chronic liver disease. He usually drinks alcohol on a social basis. No history of jaundice or hepatitis in the past. He currently reports no abdominal pain. No nausea, vomiting. No rectal bleeding or melena. PAST MEDICAL HISTORY: Diabetes mellitus, PARTS BACK COUNTER MAN lymphoma diagnosed 2 months ago. MEDICATIONS: At home: Zyloprim, Celexa, Dexamethasone, Vimpat, Seroquel, docusate sodium. ALLERGIES: None. SOCIAL HISTORY: Former smoker. Alcohol use on a social basis. FAMILY HISTORY: Father unremarkable. Mother unremarkable. REVIEW OF SYSTEMS: CARDIOPULMONARY: He denies any chest pain, shortness of breath. GENITOURINARY: No dysuria or hematuria. MUSCULOSKELETAL he reports unremarkable. SKIN unremarkable. ENDOCRINE unremarkable. PSYCHIATRIC unremarkable. He was recently started on Vimpat and Seroquel but patient does not recall as to how long he has been taking the medication. CONSTITUTIONAL: No chills or night sweats, but he had low-grade fever. PHYSICAL EXAMINATION: He appears comfortable. No apparent distress. Vital signs are stable. Blood pressure is 136/70, pulse 73, temperature 98.1. HEENT examination unremarkable. Conjunctivae pink. Sclerae anicteric. Oral cavity no lesions. NECK: No JVD or lymph node enlargement. CHEST: Clear to auscultation. HEART: Regular rate and rhythm. ABDOMEN: Soft. Bowel sounds are positive. No organomegaly. EXTREMITIES: No pedal edema. SKIN no rashes. NEUROLOGIC: Alert and oriented x3. No focal deficits. LABS: Done at the time of admission to the hospital: WBC 6.5, hemoglobin 13.3, platelets normal. Basic metabolic panel is within normal limits. AST and ALT are 505, 1056 respectively. T-bilirubin 0.3, alkaline phosphatase is 417. Repeat labs: AST is down to 251, ALT is down to 984, alkaline phosphatase is 308. Hepatitis serologies: Hepatitis A IgM antibody is negative. Hepatitis B and C were not done. Schroeder virus PCR is negative. IMPRESSION: 1. Acute elevation of serum transaminases with significant elevation of ALT and AST consistent with acute hepatocellular injury in this patient with no known history of chronic liver disease. However, the patient is a very poor historian. Baseline LFTs are not available at the time of this dictation. He recently underwent cycle of chemotherapy for newly diagnosed PARTS BACK COUNTER MAN lymphoma with high doses of methotrexate and steroids. He was also started on new medications but patient could not give me any details currently, presently. It appears most likely dealing with medication induced hepatitis, hepatitis C, hepatitis A IgM antibody negative which exclude acute hepatitis A infection. However, other viral etiologies need to be considered. His serum transaminases are slightly improved from yesterday. Covid-19 was negative. 2. Newly diagnosed PARTS BACK COUNTER MAN lymphoma. Oncology following the patient closely. 3. History of mild to moderate alcohol use. RECOMMENDATIONS: 1. We will obtain hepatitis serologies for B and C as well as CMV. 2. Monitor LFTs closely. 3. Hold off on Seroquel as well as Vimpat for now as it appears these were the two medications that we started recently. 4. Continue on broad-spectrum antibiotics. 5. We will follow with you closely. Thank you for this consultation. MMODL / IJN: [id number] /
--- NOTE | 2019-11-20 22:45 | PN ---
PROGRESS NOTE DATE OF SERVICE: 11/20/2019 REASON FOR FOLLOWUP: Fever and a question of UTI. INTERVAL HISTORY: The patient is currently afebrile. The patient overall is feeling much better. Denies having any headache. No chest pain, shortness of breath or cough. No abdominal pain. No diarrhea. PHYSICAL EXAMINATION: Blood pressure 119/62 with a pulse of 66, temperature 97.8. He is 94% on room air. General description is an elderly male up in the room in no distress. RESPIRATORY SYSTEM: Unlabored breathing. Clear to auscultation anteriorly. HEART: S1, S2. Regular rate and rhythm. ABDOMEN: Soft. No tenderness. LABS/IMAGING: Hemoglobin 14.9, white count 6.8. BUN of 14, creatinine 0.70. CT of abdomen and pelvis did show some hepatomegaly, but no evidence of any abscess or gallbladder disease. DIAGNOSTIC IMPRESSION AND PLAN: Patient with low-grade fever in this patient recently diagnosed with SURGICAL SCRUB TECH lymphoma, status post methotrexate. Did have elevated liver enzymes, though hepatitis panel has been negative. CT did not show any evidence of any mass or abscess. The patient did have mildly positive UA. Overall improvement on Rocephin; that will be continued while waiting for the culture to finalize. Continue supportive care. MMODL / IJN: [id number] /
[2019-11-21 07:26] LABS: Glucose,Whole Blood 213 mg/dL (75-99)
[2019-11-21 07:37] LABS: Basophils % (A) 1 %; Eosinophils % (A) 0 %; HCT 44.1 % (39.0-53.0); HGB 14.3 gm/dL (13.0-17.5); Lymphocytes # (A) 1.6 k/uL (1.0-4.8); Lymphocytes % (A) 21 %; MCH 30.9 pg (25.0-35.0); MCHC 32.3 g/dL (31.0-37.0); MCV 95.7 fL (80.0-100.0); Mean Platelet Volume 7.6; Monocytes # (A) 0.4 k/uL (0-1.0); Monocytes % (A) 5 %; Neutrophils # (A) 5.5 k/uL (1.3-7.7); Neutrophils % (A) 71 %; Platelet Count 378 k/uL (150-450); RBC 4.61 m/uL (4.30-5.90); RDW 13.5 % (11.5-15.5); WBC 7.8 k/uL (3.8-10.6)
[2019-11-21 07:58] LABS: ALT 683 U/L (4-49); AST 90 U/L (17-59); African American GFR (CKD) >90 (>60 ml/min/1.73 sqM); Albumin 3.5 g/dL (3.5-5.0); Alkaline Phosphatase 254 U/L (38-126); Anion Gap 7 mmol/L; Blood Urea Nitrogen 18 mg/dL (9-20); Calcium 9.2 mg/dL (8.4-10.2); Carbon Dioxide 31 mmol/L (22-30); Chloride 96 mmol/L (98-107); Glucose 200 mg/dL (74-99); Non-African American GFR(CKD) >90 (>60 ml/min/1.73 sqM); Potassium 4.9 mmol/L (3.5-5.1); Sodium 134 mmol/L (137-145); Total Bilirubin 0.4 mg/dL (0.2-1.3); Total Protein 6.5 g/dL (6.3-8.2)
--- NOTE | 2019-11-21 08:37 | US ---
EXAMINATION TYPE: US liver DATE OF EXAM: 11/21/2019 COMPARISON: NONE CLINICAL HISTORY: elevated LFT. Elevated liver enzymes EXAM MEASUREMENTS: Liver Length: 19.3 cm Gallbladder Wall: 0.2 cm CBD: 0.5 cm Right Kidney: 11.3 x 4.1 x 4.9 cm Pancreas: Obscured by bowel gas Liver: enlarged Gallbladder: no evidence of stones Evidence for sonographic Rivera's sign: no CBD: appears wnl Right Kidney: no evidence of hydronephrosis IMPRESSION: Hepatomegaly with coarsened echotexture can be associated with hepatic steatosis or hepat itis correlate clinically.
[2019-11-21] MEDS: INSULIN ASPART (NovoLOG) 100 UNIT/ML VIAL SQ SCH ×4 (08:57→21:12)
[2019-11-21] MEDS: PANTOPRAZOLE 40 MG/10 ML VIAL IVP SCH (08:57)
[2019-11-21] MEDS: DEXAMETHASONE 4 MG TAB PO SCH (08:57)
[2019-11-21 12:17] LABS: Glucose,Whole Blood 293 mg/dL (75-99)
--- NOTE | 2019-11-21 13:49 | P.PN ---
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 No physical complaints or pain Summary of hospitalization from [facility]. Patient presented to [facility] emergency department, altered mental status. CT of the head without contrast showed extensive vasogenic edema involving the right frontal. Density 5.5 x 4.4 x 3.2 cm and the largest AP answers and craniocaudal dimensions. Mass effect and effacement of the right lateral ventricular system. MRI with gadolinium confirmed a large mass lesion. CT of the chest abdomen and pelvis showed a hypodense left renal lesion that was indeterminate, bladder thickening felt to be related to incomplete distention, no evidence of enlarged lymph nodes or mass. He went to surgery with Dr. Byrd 10/21/19, biopsy of intracranial mass, pathology primary EKG TECHNICIAN diffuse large B-cell lymphoma. CD45 positive, 10% population of monoclonal B cells with lambda light chain restriction, weakly positive for BCL2 (subsequently addendum states negative), CD30 interpreted as negative, and MYC rearrangement negative, positive for BCL 6 rearrangement. 10/25/19 patient had bone marrow biopsy and aspirate performed, no evidence of lymphoma was identified, decreased iron stores, peripheral blood showed neutrophilic leukocytosis, no circulating blasts. Negative for MYC, BCL 6 rearrangements. Patient was started on high-dose methotrexate and Rituxan 11/01/19, next cycle documented as being due 11/22/19. Patient had elevated tr ansaminases documented (no numbers), felt to be related to methotrexate. His statin was held. He was supposed to continue allopurinol 300 mg daily for 4 weeks. His Decadron dose was reduced to 4 mg daily. Objective - Vital Signs Vital signs: Vital Signs Temp 98.2 F 11/21/19 08:19 Pulse 77 11/21/19 08:19 Resp 18 11/21/19 08:19 BP 122/71 11/21/19 08:19 Pulse Ox 96 11/21/19 08:19 Intake & Output 11/20/19 11/21/19 11/21/19 18:59 06:59 18:59 Intake Total 650 500 Balance 650 500 Weight 90.718 kg Intake: IV 650 Sodium Chloride 0.9% 1, 600 000 ml @ 75 mls/hr IV . [id number] ONE Rx#:[id number] cefTRIAXone 2 gm In 50 Sodium Chloride 0.9% 50 ml @ 100 mls/hr IVPB Q24H [facility] Rx#:[id number] Oral 500 Other: Voiding Method Toilet # Voids 2 - Constitutional General appearance: Present: average body habitus, cooperative, no acute distress - EENT Eyes: Present: anicteric sclerae, EOMI ENT: Present: hearing grossly normal - Respiratory Respiratory: bilateral: CTA - Cardiovascular Rhythm: regular Heart sounds: normal: S1, S2 Abnormal Heart Sounds: Absent: systolic murmur, diastolic murmur, rub, S3 Gallop, S4 Gallop, click, other - Peripheral edema leg Peripheral Edema: bilateral: None - Gastrointestinal General gastrointestinal: Present: normal bowel sounds, soft. Absent: absent bowel sounds, decreased bowel sounds, distended, hepatomegaly, hyperactive bowel sounds, organomegaly, rigid, scaphoid, splenomegaly, tenderness, umbilical hernia, ventral hernia - Integumentary Integumentary: Present: normal, normal turgor - Neurologic Neurologic: Present: CNII-XII intact - Musculoskeletal Musculoskeletal: Present: strength equal bilaterally - Psychiatric Psychiatric: Present: A&O x's 3 - Labs CBC & Chem 7: 11/21/19 07:04 11/21/19 07:04 Labs: Abnormal Lab Results - Last 24 Hours (Table) 11/19/19 11/20/19 11/20/19 Range/Units 08:25 16:48 20:21 Sodium (137-145) mmol/L Chloride (98-107) mmol/L Carbon Dioxide (22-30) mmol/L Glucose (74-99) mg/dL POC Glucose (mg/dL) 298 H 217 H (75-99) mg/dL AST (17-59) U/L ALT (4-49) U/L Alkaline Phosphatase (38-126) U/L Procalcitonin 0.26 H (0.02-0.09) ng/mL 11/21/19 11/21/19 11/21/19 Range/Units 07:04 07:24 12:15 Sodium 134 L (137-145) mmol/L Chloride 96 L (98-107) mmol/L Carbon Dioxide 31 H (22-30) mmol/L Glucose 200 H (74-99) mg/dL POC Glucose (mg/dL) 213 H 293 H (75-99) mg/dL AST 90 H (17-59) U/L ALT 683 H (4-49) U/L Alkaline Phosphatase 254 H (38-126) U/L Procalcitonin (0.02-0.09) ng/mL Microbiology - Last 24 Hours (Table) 11/19/19 08:25 Blood Culture - Preliminary Blood No Growth after 48 hours 11/20/19 02:00 Urine Culture - Preliminary Urine,Voided Presumptive Staph aureus - Imaging and Cardiology US - abdomen: report reviewed (hepatomegaly, Hx hepatitis C) Assessment and Plan (1) Fever of unknown origin Current Visit: Yes Status: Resolved Priority: High Code(s): R50.9 - FEVER, UNSPECIFIED SNOMED Code(s): 3702959 (2) Elevated liver enzymes Narrative/Plan: Reviewed Gastroenterology consult. 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 Next cycle due 11/22/19. Current Visit: Yes Status: Acute Priority: High Code(s): C85.89 - OTH TYPES OF NON-HODG LYMPH, EXTRNOD AND SOLID ORGAN SITES SNOMED Code(s): 960292054 (4) Hyponatremia Narrative/Plan: Multifactorial, suspect possibly SIADH post frontal crainotomy Current Visit: Yes Status: Acute Priority: High Code(s): E87.1 - HYPO- OSMOLALITY AND HYPONATREMIA SNOMED Code(s): 47391871 Plan: Doctor attests: I performed a history and physical examination of this patient, developed impression and plan of care, discussed with dictator. I agree with dictators note, documented as a scribe
--- NOTE | 2019-11-21 15:14 | PN ---
PROGRESS NOTE DATE OF SERVICE: 11/21/2019 This is a 59-year-old gentleman who was admitted with fever is being evaluated for possible cholangitis. The patient also had elevated LFTs, which are improving. Liver ultrasound was done, which showed hepatomegaly and and abdomen and pelvis CT scan was also done which showed hepatomegaly and 1 cm nonobstructing kidney stone. The patient was closely monitored. No chest pain or palpitations. Urine cultures show presumptive Staphylococcus aureus. PHYSICAL EXAMINATION: Alert and oriented x3. Pulse 77, blood pressure 122/70, respirations 18, temperature 98.1, pulse ox 96% on room air. HEENT: Conjunctivae normal. NECK: No jugular venous distention. CARDIOVASCULAR SYSTEM: S1, S2 muffled. RESPIRATORY SYSTEM: Breath sounds diminished at the bases. No rhonchi. No crackles. ABDOMEN: Soft, nontender. No mass palpable. LEGS: No edema. No swelling. NERVOUS SYSTEM: No focal deficit. LABS: CBC within normal limits. Sodium 134, glucose 200, AST is 90, and ALT is 683, and alkaline phosphatase 254, clinical improvement. Microbiology: Urine culture with presumptive Staphylococcus aureus. ASSESSMENT: 1. Fever for evaluation, rule out sepsis, possible cholangitis. 2. Possible urinary tract infection with presumptive Staphylococcus aureus. 3. Increased AST, ALT, and alkaline phosphatase with possible hepatitis, rule out extrahepatic biliary obstruction. 4. Elevated alkaline phosphatase and LDH. 5. Elevated plasma lactic acid. 6. Hypomagnesemia. 7. Diabetes type 2, uncontrolled, possibly aggravated by steroids. 8. Hyponatremia. 9. Elevated D-dimer without any evidence of pulmonary embolism. 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 11.Gastroesophageal reflux disease. 12.Hyperlipidemia. 13.History of nicotine dependence. 14.COVID-19 negative. RECOMMENDATIONS AND DISCUSSION: I recommend to continue current medications, management, and continue symptomatic treatment. Continue empiric antibiotics. Blood tests are as mentioned earlier. We will obtain the final ID of the culture from the urine. Otherwise, repeat labs including LFTs. We will closely follow with Hematology/Oncology. Further recommendations to follow. Prognosis guarded due to patient's multiple complex medical issues. MMODL / IJN: [id number] / MINOO
--- NOTE | 2019-11-21 15:26 | PN ---
PROGRESS NOTE DATE OF SERVICE: 11/21/2019 REASON FOR FOLLOWUP: Fever, possible UTI. INTERVAL HISTORY: The patient is currently afebrile, has been breathing comfortably. Patient denies having any chest pain. No shortness of breath or cough. No nausea, vomiting, abdominal pain, no diarrhea. Patient is anxious to go home. PHYSICAL EXAMINATION: Blood pressure 122/71 with a pulse of 75, temperature 98.2, he is 96% on room air. The patient is a middle-aged male, lying in bed in no distress. RESPIRATORY SYSTEM: Unlabored breathing, clear to auscultation anteriorly. HEART: S1, S2. Regular rate and rhythm. ABDOMEN: Soft, no tenderness. LABS: Hemoglobin 14.8, white count 7.2, BUN of 18, creatinine 0.83. Urine showing presumptive Staph aureus. DIAGNOSTIC IMPRESSION AND PLAN: Patient admitted to the hospital with fever and mental status changes, possible UTI, urine showing Staph aureus, possible MSSA. The patient is clinically responding to the Rocephin. Will wait for the culture to finalize to determine discharge antibiotics. Continue supportive care. MMODL / IJN: [id number] /
[2019-11-21 17:07] LABS: Glucose,Whole Blood 343 mg/dL (75-99)
--- NOTE | 2019-11-21 17:17 | PN ---
PROGRESS NOTE DATE OF SERVICE: 11/21/2019 The patient is a 59-year-old pleasant white male, recently diagnosed with PEOPLESOFT HR DEVELOPER non- Hodgkin's lymphoma who is undergoing radiation therapy as well as chemotherapy, admitted to the hospital 2 days ago. We have been seeing him for evaluation of elevated serum transaminases during this hospitalization. He was started on broad- spectrum antibiotics because of fever or unknown origin. He is doing much better. He denies any symptoms today. No abdominal pain. No nausea, vomiting. PHYSICAL EXAMINATION: He appears comfortable, in no apparent distress. Vital signs are stable. Blood pressure 132/71, pulse is 77, temperature 98.2. HEENT: Examination unremarkable. Conjunctivae are pink, sclerae nonicteric. Oral cavity no lesion. NECK: No JVD or lymph node enlargement. CHEST: Clear to auscultation. HEART: Regular rate and rhythm. ABDOMEN: Soft. Bowel sounds are positive. No organomegaly. EXTREMITIES: No pedal edema. SKIN: No rashes. NEUROLOGIC: Alert and oriented x3, no focal deficits. LABS: From today AST is down to 90, ALT is down to 693, alkaline phosphatase 254, T bilirubin is normal. Hepatitis serologies for A, B, and C are negative. COVID-19 is negative. CMV and EBV serology yesterday pending. IMPRESSION: 1. Elevated LFTs, possibly acute hepatitis most likely medication-related, positive from recent chemotherapy. So far, hepatitis serologies for A, B and C were negative. Serum transaminases are gradually improving and patient remains stable and asymptomatic. 2. Primary PEOPLESOFT HR DEVELOPER lymphoma diagnosed October of 2019, status post 4 cycles of chemotherapy and next cycle is due tomorrow. 3. Fever or unknown origin, on antibiotics. Oncology following the patient closely. RECOMMENDATIONS: In regards to elevated LFTs which are gradually improving, will continue to monitor them closely. Await the rest of the labs as requested. Repeat labs in the morning and will follow with you closely. Thank you for this consultation. MMODL / IJN: [id number] /
[2019-11-21 20:59] LABS: Glucose,Whole Blood 350 mg/dL (75-99)
[2019-11-22 06:48] LABS: Glucose,Whole Blood 208 mg/dL (75-99)
[2019-11-22] MEDS: INSULIN ASPART (NovoLOG) 100 UNIT/ML VIAL SQ SCH ×2 (07:16→11:45)
[2019-11-22] MEDS ORDERED: PANTOPRAZOLE 40 MG TABLET PO SCH (07:30)
[2019-11-22 07:54] VITALS: BP 136/56; PULSE 60; RESP 15; TEMP 97.5
[2019-11-22 08:13] LABS: Basophils % (A) 0 %; Eosinophils # (A) 0.1 k/uL (0-0.7); Eosinophils % (A) 1 %; HCT 40.8 % (39.0-53.0); HGB 13.6 gm/dL (13.0-17.5); Lymphocytes % (A) 26 %; MCH 31.7 pg (25.0-35.0); MCHC 33.4 g/dL (31.0-37.0); MCV 94.9 fL (80.0-100.0); Mean Platelet Volume 7.5; Monocytes # (A) 0.4 k/uL (0-1.0); Monocytes % (A) 6 %; Neutrophils # (A) 4.9 k/uL (1.3-7.7); Neutrophils % (A) 65 %; Platelet Count 390 k/uL (150-450); RDW 13.6 % (11.5-15.5); WBC 7.6 k/uL (3.8-10.6)
[2019-11-22 08:20] LABS: ALT 462 U/L (4-49); AST 53 U/L (17-59); African American GFR (CKD) >90 (>60 ml/min/1.73 sqM); Albumin 3.2 g/dL (3.5-5.0); Alkaline Phosphatase 202 U/L (38-126); Anion Gap 6 mmol/L; Blood Urea Nitrogen 20 mg/dL (9-20); Calcium 9.1 mg/dL (8.4-10.2); Carbon Dioxide 28 mmol/L (22-30); Chloride 99 mmol/L (98-107); Glucose 206 mg/dL (74-99); Non-African American GFR(CKD) >90 (>60 ml/min/1.73 sqM); Potassium 4.4 mmol/L (3.5-5.1); Sodium 133 mmol/L (137-145); Total Bilirubin 0.4 mg/dL (0.2-1.3)
[2019-11-22] MEDS: DEXAMETHASONE 4 MG TAB PO SCH (08:23)
[2019-11-22] MEDS ORDERED: VANCOMYCIN IV PER PHARMACY 1 EACH MISC MISCELLANE PRN (09:57)
[2019-11-22] MEDS ORDERED: VANCOMYCIN 1,500 MG in SODIUM CHLORIDE 0.9% 250 ML IVPB SCH (10:30)
[2019-11-22 11:36] LABS: Glucose,Whole Blood 243 mg/dL (75-99)
[2019-11-22 12:09] LABS: Appearance,Urine Clear (Clear); Bilirubin,Urine Negative (Negative); Blood,Urine Small (Negative); Color,Urine Yellow; Glucose,Urine (UA) 3+ (Negative); Ketones,Urine Negative (Negative); Leukocyte Esterase,Urine Moderate (Negative); Mucus,Urine Few /hpf; Nitrite,Urine Negative (Negative); PH, Urine 5.5 (5.0-8.0); Protein,Urine Trace (Negative); RBC,Urine 30 /hpf (0-5); Specific Gravity,Urine 1.029 (1.001-1.035); Squamous Epithelial Cell,Urine <1 /hpf (0-4); Urobilinogen,Urine <2.0 mg/dL (<2.0); WBC,Urine 46 /hpf (0-5)
--- NOTE | 2019-11-22 16:07 | P.PN ---
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 Objective - Vital Signs Vital signs: Vital Signs Temp 97.5 F L 11/22/19 07:00 Pulse 60 11/22/19 07:00 Resp 15 11/22/19 08:00 BP 136/56 11/22/19 07:00 Pulse Ox 96 11/22/19 07:00 Intake & Output 11/21/19 11/22/19 11/22/19 18:59 06:59 18:59 Intake Total 960 480 Balance 960 480 Intake: Oral 960 480 Other: Voiding Method Toilet # Voids 2 2 - Labs CBC & Chem 7: 11/22/19 07:21 11/22/19 07:21 Labs: Abnormal Lab Results - Last 24 Hours (Table) 11/21/19 11/21/19 11/22/19 Range/Units 17:03 20:58 06:47 Sodium (137-145) mmol/L Glucose (74-99) mg/dL POC Glucose (mg/dL) 343 H 350 H 208 H (75-99) mg/dL ALT (4-49) U/L Alkaline Phosphatase (38-126) U/L Total Protein (6.3-8.2) g/dL Albumin (3.5-5.0) g/dL Urine Protein (Negative) Urine Glucose (UA) (Negative) Urine Blood (Negative) Ur Leukocyte Esterase (Negative) Urine RBC (0-5) /hpf Urine WBC (0-5) /hpf Urine Mucus (None) /hpf 11/22/19 11/22/19 11/22/19 Range/Units 07:21 11:35 11:45 Sodium 133 L (137-145) mmol/L Glucose 206 H (74-99) mg/dL POC Glucose (mg/dL) 243 H (75-99) mg/dL ALT 462 H (4-49) U/L Alkaline Phosphatase 202 H (38-126) U/L Total Protein 6.0 L (6.3-8.2) g/dL Albumin 3.2 L (3.5-5.0) g/dL Urine Protein Trace H (Negative) Urine Glucose (UA) 3+ H (Negative) Urine Blood Small H (Negative) Ur Leukocyte Esterase Moderate H (Negative) Urine RBC 30 H (0-5) /hpf Urine WBC 46 H (0-5) /hpf Urine Mucus Few H (None) /hpf Microbiology - Last 24 Hours (Table) 11/19/19 08:25 Blood Culture - Preliminary Blood No Growth after 72 hours 11/20/19 02:00 Urine Culture - Final Urine,Voided Methicillin resist S. aureus Assessment and Plan (1) Fever of unknown origin Narrative/Plan: Patient is positive for MRSA UTI. Spoke with patient's on the phone. Prior to admit, patient was walking around the house, confused and it was dribbling urine. Status: Resolved Priority: High Code(s): R50.9 - FEVER, UNSPECIFIED SNOMED Code(s): 8371199 (2) Elevated liver enzymes Narrative/Plan: Reviewed Gastroenterology consult. No actual numbers from [facility] but, Physician notes report elevated LFTs. Trending down very nicely at this time. 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 Next cycle due 11/22/19. he is going to return to the Medical Oncologist who started treatment. High-dose methotrexate cannot be administered locally due to lab turnaround on methotrexate levels. Status: Acute Priority: High Code(s): C85.89 - OTH TYPES OF NON-HODG LYMPH, EXTRNOD AND SOLID ORGAN SITES SNOMED Code(s): 856968559 (4) Hyponatremia Narrative/Plan: Multifactorial, suspect possibly SIADH post frontal crainotomy. Na+ stable Status: Acute Priority: High Code(s): E87.1 - HYPO-OSMOLALITY AND HYPONATREMIA SNOMED Code(s): 73881434 Plan: Ppoke with over the phone, we reviewed pt discharge medication list, MRSA infection, importance of completing antibiotics, need for patient to connect with PCP for treatment of type 2 diabetes. She verbalized understanding, all question answered to her satisfaction Time with Patient: Greater than 30 (counseling and coordinating care with over the phone)
--- NOTE | 2019-11-22 16:26 | PN ---
PROGRESS NOTE DATE OF SERVICE: 11/22/2019 REASON FOR FOLLOWUP: MRSA urinary tract infection. INTERVAL HISTORY: The patient is currently afebrile, has been breathing comfortably. The patient denies having any chest pain or shortness of breath or cough. No nausea or vomiting. No abdominal pain. No diarrhea. The patient is insisting on going home. PHYSICAL EXAMINATION: Blood pressure 136/56, pulse of 60, temperature 97.5. He is 93% on room air. General description is a middle-aged male up in the room in no distress. RESPIRATORY SYSTEM: Unlabored breathing. Clear to auscultation anteriorly. HEART: S1, S2. Regular rate and rhythm. ABDOMEN: Soft. No tenderness. LABS: Hemoglobin is 13.6, white count 7.6, creatinine 0.76. Urine shows moderate leukocyte esterase and 46 WBCs. Previous urine culture with MRSA resistant to Bactrim. DIAGNOSTIC IMPRESSION AND PLAN: Patient with a fever, possible urinary tract infection. Urine has been finalized with MRSA that is resistant to Bactrim. Patient has been given a dose of vancomycin. As the patient is insistent on going home, only oral option is the Macrobid, with a risk of failure. This has been explained to the patient and he is advised if any recurrence of symptoms to let us know right away. MMODL / IJN: [id number] /
--- NOTE | 2019-11-22 19:29 | PN ---
PROGRESS NOTE DATE OF SERVICE: 11/22/2019 The patient is a 59-year-old pleasant white male, who was admitted to the hospital three days ago with possible urinary tract infection, on broad-spectrum antibiotics. He was recently diagnosed with STAIN SPRAYER lymphoma in October of 2019 at [facility] and underwent brain biopsy. He received high-dosed chemotherapy three weeks ago. He was admitted to the hospital with urinary tract infection and was noted to have acute elevation of serum transaminases which are gradually improving. Hepatitis serologies for A, B, and C were negative. Serologies for EBV IgM was negative and CMV IgM antibody was also negative. The patient in the meantime is doing well. He denies any complaints. PHYSICAL EXAMINATION: On physical examination, vital signs are stable. Blood pressure is 136/56, pulse is 60, temperature is 97.5. HEENT: Examination is unremarkable. Conjunctivae are pink. Sclerae nonicteric. Oral cavity, no lesion. NECK: No jugular venous distention or lymph node enlargement. CHEST: Clear to auscultation. HEART: Regular rate and rhythm. ABDOMEN: Abdomen is soft. Bowel sounds are positive. No organomegaly. EXTREMITIES: No pedal edema. SKIN: No rashes. NEUROLOGIC: Alert and oriented x3, no focal deficits. LABS: Labs from today, CBC is within normal limits. AST is down to 53, ALT is down to 462, alkaline phosphatase is 202, and T-bilirubin is normal. IMPRESSION: 1. Acute elevation of serum transaminases, which were in the range of 1000 at the time of admission to the hospital, most likely related to medication-induced hepatitis from recent chemotherapy that was given for STAIN SPRAYER lymphoma. Hepatitis serologies were negative. CMV IgM and EBV IgM antibody were negative. COVID-19 negative. Serum transaminases are significantly improved with AST almost normal and ALT still elevated at 462. 2. Recent diagnosis of STAIN SPRAYER lymphoma, status post chemotherapy, one cycle. He is going to be followed by Dr. Betts. 3. Urinary tract infection, on antibiotics, improving. RECOMMENDATIONS: 1. Monitor LFTs on a close basis. 2. Continue with current antibiotics. 3. Further management as per Oncology. Thank you for this consultation. MMODL / IJN: [id number] /
--- NOTE | 2019-11-23 10:55 | P.DS ---
Providers Date of admission: 11/19/19 14:35 Expected date of discharge: 11/23/19 Attending physician: Cleo Gonzalez Consults: 11/19/19 13:44 Consult Physician Urgent Consulting Provider: Mercedes Betts Consult Reason/Comments: Non-Hodgkin's lymphoma Do you want consulting provider notified?: Yes Consult Physician Urgent Consulting Provider: Malik Zeng Consult Reason/Comments: Elevated liver enzymes Do you want consulting provider notified?: Yes 11/19/19 17:43 Consult Physician Routine Consulting Provider: Ryland Rosa Consult Reason/Comments: sepsis Do you want consulting provider notified?: Yes Primary care physician: Physician Nonstaff Hospital Course: Final diagnosis Fever for evaluation, rule out sepsis, possible cholangitis Acute urinary tract infection with MRSA Increased AST, ALT, and alkaline phosphatase with possible hepatitis, rule out extrahepatic biliary obstruction Elevated alkaline phosphatase and LDH Elevated plasma lactic acid level Hypomagnesemia Diabetes mellitus type 2, uncontrolled, possibly aggravated by steroids Hyponatremia Elevated d-dimer without any evidence of pulmonary embolism GERD Hyperlipidemia history of nicotine dependence Covid 19 ruled out, testing was negative Discharge disposition Patient is being discharged in a stable condition with guarded prognosis to home and will follow-up with his primary care provider in the outpatient setting. Patient will also follow-up with oncology upon discharge. Patient will continue on a short course of oral antibiotics in the form of Macrobid twice daily for the next 10 days. Total time taken is 35 minutes. History of present illness This is a 59-year-old male who was recently admitted with fever and being evaluated for possible cholangitis and was also found to have elevated LFTs and was being closely monitored. Multiple medical consultations following. Patient had a urinalysis with culture done growing MRSA with repeat urinalysis continuing to show moderate amounts of leukocyte Estrace. Patient was persistent on going home and states he is feeling much better. Infectious disease was following. Patient was treated with IV antibiotics in the form of ceftriaxone along with vancomycin while hospitalized and will continue with Macrobid twice daily for the next 10 days in the outpatient setting due to the MRSA. Instructed the patient that he needs follow-up with his primary care provider for repeat LFT functions along with monitoring the MRSA infection. Patient will also be following up with oncology in the outpatient setting for VP PLATFORMS lymphoma. Patient does have a telehealth appointment with Dr. Aparicio that was scheduled for this afternoon at 3:15. Currently no reports of chest pain, shortness of breath, or palpitations. Patient is afebrile. No reports of nausea or vomiting and patient is tolerating diet. On exam vital signs are stable. Temp is 97.5F, pulse is 60, respirations are 15, blood pressure is 136/56, oxygen saturation is 96% on room air. Cardio S1, S2 are present. Respiratory system shows clear to auscultation. Abdomen is soft and nontender. Nervous system shows no focal deficits. Please refer to medication reconciliation sheet for a list of medications. Patient Condition at Discharge: Good Plan - Discharge Summary Discharge Rx Participant: No New Discharge Prescriptions: New Nitrofurantoin Monohyd/M-Cryst [Macrobid] 100 mg PO Q12HR 10 Days #20 cap Continue Allopurinol [Zyloprim] 300 mg PO DAILY Dexamethasone 4 mg PO DAILY Citalopram Hydrobromide [CeleXA] 20 mg PO DAILY Docusate Sodium [Dok] 100 mg PO BID Discontinued QUEtiapine [SEROquel] 50 mg PO HS Lacosamide [Vimpat] 100 mg PO BID Discharge Medication List Allopurinol [Zyloprim] 300 mg PO DAILY 11/19/19 [History] Citalopram Hydrobromide [CeleXA] 20 mg PO DAILY 11/19/19 [History] Dexamethasone 4 mg PO DAILY 11/19/19 [History] Docusate Sodium [Dok] 100 mg PO BID 11/19/19 [History] Nitrofurantoin Monohyd/M-Cryst [Macrobid] 100 mg PO Q12HR 10 Days #20 cap 11/22/19 [Rx] Follow up Appointment(s)/Referral(s): Nonstaff,Physician [Primary Care Provider] - 1-2 days Patient Instructions/Handouts: MRSA (Methicillin-Resistant Staphylococcus Aureus) (DC), Urinary Tract Infection in Men (DC) Activity/Diet/Wound Care/Special Instructions: Glucometer and testing supplies are in [facility] pharmacy. Patient medications are in the med room on [address]. Continue current diet Follow-up with primary care provider Follow-up with telehealth appointment today at 3:15 PM Continue antibiotics until finished Discharge Disposition: HOME SELF-CARE
== END 2019-11-22 15:53 | disposition home or self-care (01) | DRG 871 ==
LOC: EC 07:55 → 6NMEDSUR 14:35 → 4SSUR 11-21 17:55
PROVIDERS: ADMIT Internal Medicine; ATTEND Internal Medicine
DX: A41.9 Sepsis, unspecified organism (principal); G93.6 Cerebral edema; C85.99 Non-Hodgkin lymphoma, unspecified, extranodal and solid organ sites; E87.1 Hypo-osmolality and hyponatremia; E87.2 Acidosis; N39.0 Urinary tract infection, site not specified; Z16.29 Resistance to other single specified antibiotic; K83.09 Other cholangitis; Z20.828 Contact with and (suspected) exposure to other viral communicable diseases; K71.6 Toxic liver disease with hepatitis, not elsewhere classified; T50.905A Adverse effect of unspecified drugs, medicaments and biological substances, initial encounter; B95.62 Methicillin resistant Staphylococcus aureus infection as the cause of diseases classified elsewhere; E78.5 Hyperlipidemia, unspecified; E83.42 Hypomagnesemia; I10 Essential (primary) hypertension; K21.9 Gastro-esophageal reflux disease without esophagitis; N20.0 Calculus of kidney; Z79.899 Other long term (current) drug therapy; Z85.841 Personal history of malignant neoplasm of brain; Z87.891 Personal history of nicotine dependence; Z92.21 Personal history of antineoplastic chemotherapy; E11.65 Type 2 diabetes mellitus with hyperglycemia
CPT/HCPCS: 36415; 70450; 71045; 71275; 74176; 76705; 80053; 80074; 80299; 81001; 82009; 82150; 82728; 83605; 83615; 83690; 83735; 84145; 84484; 84550; 85025; 85379; 85610; 85730; 86140; 86645; 86665; 87040; 87077; 87086; 87186; 87502; 87635; 93005; 93306; 96361; 96365; 99285